=== PATIENT | female | born 1975 | race Hispanic/Latino ===

== ENCOUNTER → 2023-09-10 06:18 | Outpatient (REF) | payer OTHER, SELFPAY ==
[2023-09-10 07:07] LABS: Hematocrit 38.9 % (37.0-47.0); Hemoglobin 12.3 g/dL (12.0-16.0); Mean Corp Hgb Conc. 31.6 g/dL (33.0-37.0); Mean Corpuscular Hgb 23.1 pg (27.0-31.0); Mean Corpuscular Volume 73.1 fL (81.0-99.0); Mean Platelet Volume 10.9 fL (7.4-10.4); Platelet Count 221 10^3/uL (130-400); Red Blood Cell Count 5.32 10^6/uL (4.20-5.40); White Blood Cell Count 5.5 10^3/uL (4.8-10.8)
[2023-09-10 07:24] LABS: Blood Urea Nitrogen 13 mg/dl (7-17); Calcium 9.7 mg/dl (8.4-10.2); Carbon Dioxide 24 mmol/L (22-30); Chloride 104 mmol/L (98-107); Glucose 108 mg/dl (70-99); Iron 66 ug/dl (37-170); Potassium 4.3 mmol/L (3.5-5.1); Sodium 140 mmol/L (135-145); eGFR > 60.00
[2023-09-10 07:34] LABS: Percent Saturation 15 % (20-50); Total Iron Binding Capacity 418 ug/dl (265-497)
[2023-09-10 08:06] LABS: Ferritin 6.8 ng/ml (6.24-137)
[2023-09-10 08:20] LABS: Vitamin B12 334 pg/ml (239-931)
[2023-09-10 09:22] LABS: Glycohemoglobin (HgbA1c) 5.9 % (4.0-5.6)
== END ==
LOC: CLINIC 06:18
PROVIDERS: ATTENDING PHYSICIAN Nurse Practitioner Adult Health
DX: R73.03 Prediabetes (principal); D64.9 Anemia, unspecified
CPT/HCPCS: 36415; 80048; 82607; 82728; 83036; 83540; 83550; 85027